=== PATIENT | male | born 1980 | race Caucasian/White ===

== ENCOUNTER 2020-11-01 14:57 | Outpatient (RCR) | payer BC, SELFPAY | END 2021-01-07 23:59 | LOC: IMMUN 14:57 | PROVIDERS: Visit Provider Family Medicine | DX: Z23 Encounter for immunization (principal) | CPT/HCPCS: 0001A; 0002A; 91300 ==

== ENCOUNTER → 2022-06-08 | Outpatient (CLI) | payer BC, SELFPAY ==
--- NOTE | 2022-06-08 06:32 | MRI_ITS ---
STUDY: MRI LEFT ELBOW REASON FOR EXAM: Male, 42 years old. assess distal biceps tear TECHNIQUE: Standardized fat and water weighted pulse sequences were obtained in all 3 orthogonal planes. COMPARISON: X-ray of the left humerus and elbow dated June 02, 2022 FINDINGS: There is complete tear of the distal biceps tendon within the antecubital fossa, with retraction of the main tendon stump up to the musculotendinous junction, where there is moderate partial tearing involving the distal biceps muscle fibers and a small surrounding hematoma. Normal radio-capitellum articulation. Normal radial collateral ligamentous complex. There is moderate tendinosis of the common extensor tendon origin with a 5.2 mm intrasubstance split tear. A small elbow joint effusion is also present. Subcutaneous edema is also present primarily on the medial side of the elbow. Normal ulnotrochlear articulation. Normal ulnar collateral ligamentous complex. Normal common flexor tendon. The cubital tunnel is normal, with a normal ulnar nerve. Normal lacertus fibrosis. Normal brachialis musculotendinous insertion. Normal triceps tendon and teno-osseous insertion. Normal olecranon process. The visualized distal humerus, proximal radius, and ulna are normal. The visualized muscles of the distal arm and proximal forearm are normal. MRI/Upper Ext Joint Only(Routine) IMPRESSION: 1. Complete tear of the distal biceps tendon within the antecubital fossa, with retraction of the main tendon stump up to the musculotendinous junction, where there is moderate partial tearing involving the distal biceps muscle fibers and a small surrounding hematoma. 2. Moderate tendinosis with intrasubstance split tear of the common extensor tendon complex at the humeral attachment site 3. Small elbow joint effusion Electronically Signed: Shmuel Roman MD at 8:40 EST ,
== END | disposition home or self-care (01) ==
PROVIDERS: PCP Family Medicine; Referring Provider Orthopaedic Surgery Sports Medicine; Visit Provider Orthopaedic Surgery Sports Medicine
DX: S46.212A Strain of muscle, fascia and tendon of other parts of biceps, left arm, initial encounter (principal)
CPT/HCPCS: 73221

== ENCOUNTER 2022-06-09 11:48 | Day surgery (SDC) | payer BC, SELFPAY ==
[2022-06-09] VITALS (10 sets, daily range): BP systolic 137–169; BP diastolic 93–114; PULSE 89–106; RESP 14–20; TEMP 36.1–36.8; O2SAT 91–98; BMI 40.9
[2022-06-09] MEDS: Lactated Ringers 1,000 ML 15 ML IV (12:42)
--- NOTE | 2022-06-09 14:42 | HP.PCM_ITS ---
HPI - General HPI Narrative NAYANA JIMÉNEZ, is a 42 M who presents for left distal biceps repair. no changes to h and p. left elbow marked. questions answered. block given by anesthesia. Wishes to proceed. Intake Intake Visit Reasons:?FU biceps tear Chief Complaint: left arm Allergies No Known Allergies Allergy (Verified 06/08/22 14:50) Medications ibuprofen 200 mg tablet 200 mg PO Q6H PRN 06/04/22 [History Confirmed 06/08/22] PFSH Medical History? Rupture of left distal biceps tendon Surgical History? Hx of arthroscopy of left knee Hx of reconstruction of anterior cruciate ligament tear Family History? Grandfather Cancer Social History? household members:? spouse and children number of children:? 3 Smoking Status:? Never smoker alcohol intake:? never HPI FU biceps tear Details: Parts of this documentation were recorded by a scribe, this documentation accurately reflects the service provided and the decisions made by me, Dr. Sandeep Luis MD 06/08/22 [id number]. NAYANA JIMÉNEZ is a 42 year old M here today for follow-up MRI for left distal biceps tear.? He has noticed some medial bruising about the elbow. Ortho Exam General General: Yes no acute distress Neurologic: Yes alert and Yes oriented x3 Psychologic: Yes reasonable and appropriate Left Elbow Skin/Wound: Yes CDI, Yes eccymosis, No erythema and Yes Swelling ROM: Yes Flexion 0-140 Supplemental Info MR#:? [id number] Acct: [id number] Name:NAYANA OROURKE Rep #: [id number] :?? 1980 M 42 ? From:? ? Shmuel Roman MD PCP: Dr. Chato Haro, DO ? Status: REG CLI Study: Upper Ext? Joint Only(Routine) ? Date of Exam: 06/08/22 Exam# [id number] ? Ordering Dr:? Sandeep Luis MD STUDY: ? MRI LEFT ELBOW REASON FOR EXAM: ? Male, 42 years old.? assess distal biceps tear TECHNIQUE: ? Standardized fat and water weighted pulse sequences were obtained in all 3 orthogonal planes. COMPARISON: ? X-ray of the left humerus and elbow dated June 02, 2022 FINDINGS: There is complete tear of the distal biceps tendon within the antecubital fossa, with retraction of the main tendon stump up to the musculotendinous junction, where there is moderate partial tearing involving the distal biceps muscle fibers and a small surrounding hematoma. Normal radio-capitellum articulation.? Normal radial collateral ligamentous complex.? There is moderate tendinosis of the common extensor tendon origin with a 5.2 mm intrasubstance split tear.? A small elbow joint effusion is also present.? Subcutaneous edema is also present primarily on the medial side of the elbow. Normal ulnotrochlear articulation.? Normal ulnar collateral ligamentous complex.? Normal common flexor tendon.? The cubital tunnel is normal, with a normal ulnar nerve. Normal lacertus fibrosis. Normal brachialis musculotendinous insertion. Normal triceps tendon and teno-osseous insertion.? Normal olecranon process. The visualized distal humerus, proximal radius, and ulna are normal.? The visualized muscles of the distal arm and proximal forearm are normal. MRI/Upper Ext? Joint Only(Routine) IMPRESSION: 1.? Complete tear of the distal biceps tendon within the antecubital fossa, with retraction of the main tendon stump up to the musculotendinous junction, where there is moderate partial tearing involving the distal biceps muscle fibers and a small surrounding hematoma. 2.? Moderate tendinosis with intrasubstance split tear of the common extensor tendon complex at the humeral attachment site 3.? Small elbow joint effusion ? Electronically Signed: Shmuel Roman MD at 8:40 EST Reading Location ID and State: [address] [place] [address] , Service support? , ? I personally reviewed and agree with radiologist interpretation.? There is a complete tear of the distal biceps tendon. Coding Level of Care Code Off vis,est,level 4 Diagnoses Rupture of left distal biceps tendon? S46.212A Time Spent (min) 30 Assessment and Plan Assessment and Plan (1) Rupture of left distal biceps tendon: ?Status:?Acute ?Plan: 42-year-old man with a distal biceps rupture.? We discussed the pros and cons risks and benefits of both nonoperative treatment both at this visit as well as the last compared to surgical repair.? Generally this takes up to 6 months prior to regaining heavy lifting strength.? He would like to go ahead and signed the informed consent documentation for that surgery as well as possible need for blood products. Pros and cons risks and benefits were discussed with the patient including but not limited to infection, pain, stiffness, bleeding, damage to surrounding structures, neurovascular injury, recurrence or retear, failure or wear of hardware or fixation, instability, fracture, deep vein thrombosis and pulmonary embolism, anesthetic risks, patient dissatisfaction, need for further surgery and other risks.? Patient understood and wished to proceed with surgery, and signed the informed consent documentation. [facility] Medical History (Updated 06/08/22 @ 15:24 by Yvette Hinojosa) Heartburn Non-smoker Rupture of left distal biceps tendon Home Medications ibuprofen 200 mg tablet 200 mg PO Q6H PRN Pain 06/04/22 [History Last Taken Unknown] Allergy/AdvReac Type Severity Reaction Status Date / Time No Known Allergies Allergy Verified 06/09/22 12:36 Family History Grandfather Cancer Surgical History Hx of arthroscopy of left knee Hx of reconstruction of anterior cruciate ligament tear Social History household members: spouse and children number of children: 3 Smoking Status: Never smoker alcohol intake: never Vital Signs Vital Signs Vital Signs: 06/09/22 12:37 Temperature 98.3 F Temperature Source Oral Pulse Rate 89 Respiratory Rate 16 Blood Pressure 137/93 H Blood Pressure Mean 107 Blood Pressure Source Monitor Blood Pressure Position Semi-Fowlers Blood Pressure Location Right Arm Pulse Ox 98 Oxygen Delivery Method Room Air Weight Weight: 302 lb 0.533 oz Body Mass Index (BMI) 40.9
--- NOTE | 2022-06-09 15:30 | RAD_ITS ---
STUDY: INTRAOPERATIVE FLUOROSCOPY TECHNIQUE: The examination was performed with referring physician in attendance. Under fluoroscopic observation, fluoroscopic images were obtained. Radiologist was not present for the study. Radiologist did not perform the procedure. This dictation is for documentation of the radiation dosage only. There is no interpretation of the images. TOTAL NUMBER OF IMAGES: 1 COMPARISON: None RADIATION DOSE: 5.2 mGy FLUOROSCOPY TIME: 12.9 seconds REASON FOR EXAM: DISTAL BICEP REPAIR Male, 42 years old. FINDINGS: Images of the elbow. RAD/Elbow 2 Views IMPRESSION: Fluoroscopic assistance images were obtained. Dictation for documentation purposes only. Electronically Signed: Parveen Rivera MD at 21:27 EST ,
--- NOTE | 2022-06-09 17:10 | PCM.OPRPT ---
Problems Associated Problem List Diagnoses (1) Rupture of left distal biceps tendon: Report of Operation Date of Procedure: 06/09/22 Pre-Operative Diagnosis: left distal biceps rupture Post-Operative Diagnosis: left distal biceps rupture Surgery/Procedure Performed:: left distal biceps repair Surgeon: Sandeep Luis Type of Anesthesia: Block,Regional and General Anesthesiologist: Teo Goldman Estimated Blood Loss (mL): 20 Description of Procedure: Patient was brought to the operating room theater. Placed supine on the operating room table. All bony prominences appropriately padded. SCDs on the legs. Arm table to the patient's operative side. Bed turned 90 degrees. General anesthesia induced. 3 g IV Ancef administered prior to the start of. Tourniquet applied to the upper extremity. Upper extremity prepped and draped in the usual sterile fashion allowing over 3 minutes drying time prior to draping. Preoperative timeout performed to confirm the site patient and surgery. Began by exsanguinating the limb and inflating the tourniquet to 250 mmHg. Performed a transverse volar incision 2 fingerbreadths distal to the transverse elbow crease. Dissected down through skin and subcutaneous tissue achieved meticulous hemostasis. Identified the lateral antebrachial cutaneous nerve and protected this. Identified the neurovascular bundle. I dissected proximally to find the distal stump of the biceps tendon. I delivered this through the wound. I cleaned up the end of the tendon for 1 to 2 mm. I used the Arthrex whipstitch with a Jeramie needle to perform 5 whipstitches locking this distally. Passed the sutures in opposite fashion through the button. Next I turned my attention distally to identify the radial tuberosity. This proved quite difficult given the muscular nature of the patient. I did have to extend the transverse incision distally along the radial side for a L-shaped incision. Identified the recurrent branch of the radial artery. I protected this. I cauterized a small transverse crossing vessels. Identified the radial tuberosity. Due to the deep nature of the dissection I did have to use Hohmann retractors on either side of the radial tuberosity. I used intraoperative fluoroscopy to identify the radial tuberosity. I performed bicortical drilling with the spade tip drill bit. I did have to readjust this more distal to be at the tuberosity in maximum supination. I then drilled using an 8 mm reamer over top unicortical he. I irrigated the bone dust. I removed a spade tip drill bit and then passed the button bicortically flipped the button deliver the tendon into the bony tunnel with the elbow at about 30 degrees of flexion. I used a knot pusher 5 interrupted half hitches. Passed the suture back through the tendon using a Jeramie needle. I then introduced the Arthrex 7 x 10 mm biointerference screw this achieved good purchase. I fully seated the screw. I took final radiographs. Tourniquet was taken down. Wound thoroughly irrigated. Meticulous hemostasis achieved. Subcutaneous tissue closed with 2-0 Vicryl suture and skin with 3-0 Monocryl. Skin cleaned with wet and dry dressing no local anesthesia used patient had a block. Skin cleaned with wet and dry dressing followed application of Steri-Strips 4 x 4 gauze Adaptic abdominal pad dressings and sterile cast padding. Posterior back slab with the elbow at 90 degrees of flexion was then placed and over wrapped with Cachorro bandage in a sling with the elbow at about 90 degrees of flexion. Patient woken up from a general anesthetic transferred off the operating room table and taken to postanesthetic care unit in stable condition. All sponge needle instrument counts were correct no complications. Plan for the patient follow-up in 2 days time. bill distal biceps repair and modifier 22 narcotic counselling preop Grafts/Implants Used: biceps metal button and interference screw Complications none Admit VTE Documentation VTE Present on Admission: No VTE Mechan Device Prophylaxis: None VTE Pharm Prophylaxis ordered?: No Reason prophylaxis not ordered:: Treatment Not Indicated Multi Select Codes Musculoskeletal Musculoskeletal CPT Codes: Other Procedure See Report
--- NOTE | 2022-06-09 17:18 | DCINST_ITS ---
Discharge Instructions Procedure Narrative: distal biceps repair Diet Discharge Diet: No restrictions Dressing / Incision Call your doctor if your incision/area has: Continuous Slow Oozing, Sudden Increased Bleeding, Increased Pain/ Swelling, Increased Redness, Foul Smelling Discharge and Swelling at the incision site Change Dressing in: leave in place till F/U Follow Up Care Please Follow Up With: Sandeep Luis MD When: 2 days Test Results: Test results from this visit will be discussed in further detail at your follow- up appointment, if applicable. Discharge Plan Admission Attending Provider: Sandeep Luis Primary Care Provider: Chato Haro Discharge Orders/Prescriptions Prescriptions: New oxycodone-acetaminophen [Endocet] 5-325 mg tablet 1 tab PO Q4H PRN (Reason: pain) 7 Days Qty: 30 0RF No Action ibuprofen 200 mg tablet 200 mg PO Q6H PRN (Reason: Pain) Referrals / Follow Up: Chato Haro DO [Primary Care Provider] - Sandeep Luis MD [Med Staff - Active Staff] - Disposition Disposition (needs filled in before D/C Order can be placed): Home, Self Care
== END 2022-06-09 19:30 | disposition home or self-care (01) ==
LOC: SDC 11:49 → AC 11:51
PROVIDERS: PCP Family Medicine; Visit Provider Orthopaedic Surgery Sports Medicine
PROC: (CPT 24341; principal; 2022-06-09 13:15)
DX: S46.212A Strain of muscle, fascia and tendon of other parts of biceps, left arm, initial encounter (principal); M25.422 Effusion, left elbow; R12 Heartburn
CPT/HCPCS: 24341; 01710; 64418; 73070; 76000; J7120; J2405

== ENCOUNTER 2022-09-28 08:00 | Outpatient (RCR) | payer BC, SELFPAY ==
--- NOTE | 2022-06-17 09:19 | HP.PTEVAL_ITS ---
Patient's Visit Information NAYANA JIMÉNEZ is a 42 year old M referred to Physical Therapy by Dr. Sandeep Luis MD with a diagnosis of L distal biceps rupture s/p repair 06/09. Date of Evaluation: 06/17/22 Physical Therapist: Sang Stephen, WAGNER, OCS, CSCS - Visit Plan Frequency: 1-2x /Week Duration: 3 Months Plan: 1-2x/week for 8-12. PROM progression for first 4-8 weeks through mid July to August,. May do gentle iso to tolerance of elbow in July if m otion full, Can do shoulder isometrics prior without involving biceps. Progress HEP until can strengthen then more frequent visits for strength when appropriate. - Subjective Tore L biceps using a pipe wrench, felt pop in elbow . Some pain at first that dulled out quickly. That was 2 weeks ago. Surgery to repair 06/09/22. In brace since day after surgery locked at 90 but can open until 80. Not allowed to do much with it right now. Slow progression of extension over 8 weeks.No real pain lately, gets an annoying ache at times. sleeping ok somewhat, has to get used to brace. Employed as [employer], working from home right now. 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 Doctor said no driving until 2022. Basic ADLS all are OK. Hobbies include, 3 kids and watches movies and play video games which he is doing. HEP:Just rest. Moves hand around, ice every couple hours. Ibuprofen every 4-6 hours. Is R handed. - Pain L forearm Pain Intensity (Out of 10): 0 Pain Intensity Range: 0, 2 - Objective L brace donned and doffed I. Holds L arm slightly flexed and protected. Able to move neck , scap, wrist flex/ext adn hand normally and without pain. Elbow L - 50 ext and 130 flexion PROM B.-35 PROM by therapist. R elbow is 135 flexion and 0 extension. supination is 30 into supination from neutral PROM and pronation to 75 degrees aROM from neutral. Just some pulling with taught biceps, no pain and did not push it today. strength not t. Walks I and trasnfers I without using L UE.ested. - Balance/Special Test Scores Quick DASH Score: 52.2725 - Goals Goal 1:: ST:Progress to full PROM elbow and sup/pronation without increased pain Goal Time Frame: 2-4 Weeks Goal 2:: Patient sleep without deficits of pain Goal Time Frame: 4-6 Weeks Goal 3:: Pt feel 90% back to normal with L elbow Goal Time Frame: 6-8 Weeks Goal 4:: Pt I skilled nursing management ex of L elbow strength and ROM Goal Time Frame: 8-12 Weeks Goal 5:: quickdash score of 13 or better Goal Time Frame: 8-12 Weeks - Rehabilitation Potential Physical Therapy Diagnosis: post surgical ROM and strenght/functional deficits Rehabilitation Potential: Good - Anticipated Interventions Patient/Client Instruction: Educate patient on: Condition, Plan of Care For the Purpose of:: To decrease pain, To increase ROM, To improve nutrient delivery to tissue, To improve muscle performance and motor function, To increase tolerance to activity/condition/position, To improve ability of physical actions for home/community/work/leisure Therapeutic Exercise to Include: Strength training, Passive ROM, Active ROM For the Purpose of:: To decrease pain, To increase ROM, To improve nutrient delivery to tissue, To improve muscle performance and motor function, To increase tolerance to activity/condition/position, To improve ability of physical actions for home/community/work/leisure Thank you for the opportunity to evaluate your patient. For Medicare and Medicare HMO plans, please review the plan of care and approve it. It will need to be FAXED BACK to us at [phone] for Medicare purposes. For Medicare only, by signing this I certify the plan of care. Please let me know if there are questions or concerns regarding this plan of care. Physician Signature: Date:
--- NOTE | 2022-08-27 09:57 | HP.PTREVAL_ITS ---
Dr. Sandeep Luis MD, It has been my pleasure to treat NAYANA JIMÉNEZ over the last 13 visits for L distal biceps rupture s/p repair 06/09. Please see the progress note below for an update on the physical therapy plan of care! Subjective: Pt reports he is making progress. Is compliant with HEP. Objective/Function: Pt able to complete all exercises above without incidence or pain. Pt reports he is sleeping fine with no disturbances. Pt is compliant with HEP and education/encouragement on progressing band resistance at home for continued progression of strength. Fair prognosis to continue toward goals. Plan Plan: Continue 1-2x/week for 4 weeks to progress forces safely through elbow and shoulder until patient back to full work duties. progress slowly strength biceps and shoulder and triceps and UE function. Functional UE starting slowly especially with biceps. May vend new TB when needed for home afterf each week of previous band. Balance/Gait/Functional tests - Balance/Special Test Scores Quick DASH Score: 11.3625 Goals Goal 1:: ST:Progress to full PROM elbow and sup/pronation without increased pain Goal Time Frame: 2-4 Weeks Goal Progress: Goal Met Goal 2:: Patient sleep without deficits of pain Goal Time Frame: 4-6 Weeks Goal Progress: Goal Met Goal 3:: Pt feel 90% back to normal with L elbow Goal Time Frame: 6-8 Weeks Goal Progress: Progressing Goal 4:: Pt I long-term management ex of L elbow strength and ROM Goal Time Frame: 8-12 Weeks Goal Progress: Progressing Goal 5:: quickdash score of 13 or better Goal Time Frame: 8-12 Weeks Goal Progress: Progressing Goal 6:: Pt return to full duty at work without limitations Goal Time Frame: 6-8 Weeks Anticipated Interventions Patient/Client Instruction: Educate patient on: Condition, Plan of Care For the Purpose of:: To decrease pain, To increase ROM, To improve nutrient delivery to tissue, To improve muscle performance and motor function, To increase tolerance to activity/condition/position, To improve ability of physical actions for home/community/work/leisure Therapeutic Exercise to Include: Strength training, Passive ROM, Active ROM For the Purpose of:: To decrease pain, To increase ROM, To improve nutrient delivery to tissue, To improve muscle performance and motor function, To increase tolerance to activity/condition/position, To improve ability of physical actions for home/community/work/leisure Please do not hesitate to contact me at [phone] by phone or Fax: if you have questions or concerns regarding this new plan of care! Sincerely, Sang Stephen, DPT, OCS, CSCS
--- NOTE | 2022-09-28 08:15 | HP.PTDCSUM_ITS ---
It has been my pleasure to treat NAYANA JIMÉNEZ referred by Dr. Sandeep Luis MD, with the diagnosis of L distal biceps rupture s/p repair 06/09 for a total of 17 visit(s). Discharge Date: 09/28/22 Please see the following information for a summary of their discharge status. Subjective: No problems L elbow or shoulder. Some problems with R shoulder but that is normal for him . No pain, sleeping well. Gradually progressing like he is back at it , still a llittle weak. Fully functionality. L forearm Pain Intensity (Out of 10): 0 % Improvement: 90 Objective/Function: Full aROM B shoulders elbows and wrists and symmetrical. Still some numbness L lateral forearm but improving. strength is 5/5 elbow flex/ext and shoulder movements and supination and symmetrical L to R. Goal 1:: ST:Progress to full PROM elbow and sup/pronation without increased pain Goal Progress: Goal Met Goal 2:: Patient sleep without deficits of pain Goal Progress: Goal Met Goal 3:: Pt feel 90% back to normal with L elbow Goal Progress: Goal Met Goal 4:: Pt I custodial management ex of L elbow strength and ROM Goal Progress: Goal Met Goal 5:: quickdash score of 13 or better Goal Progress: Goal Met Goal 6:: Pt return to full duty at work without limitations Goal Progress: Goal Met Plan: d/c to HEP If there are questions or concerns regarding this patient's physical therapy, please feel free to call me at [phone]. Thank you for the referral of this patient. Sincerely, Sang Stephen, DPT, OCS, CSCS Balance/Gait/Functional tests - Balance/Special Test Scores Quick DASH Score: 0
== END 2022-09-28 09:02 | disposition home or self-care (01) ==
LOC: PT 08:00
PROVIDERS: PCP Family Medicine; Referring Provider Orthopaedic Surgery Sports Medicine; Visit Provider Orthopaedic Surgery Sports Medicine
DX: S46.212A Strain of muscle, fascia and tendon of other parts of biceps, left arm, initial encounter (principal)
CPT/HCPCS: 97110; 97140; 97161; 97164; 97530